=== PATIENT | male | born 1945 | race Two or more races ===

== ENCOUNTER 2020-05-26 13:04 | Inpatient (IN) | payer OTHER ==
[~2020-05-26] VITALS: Ht 170.2 cm; Wt 83.8 kg
[~2020-05-26 13:04] MED LIST: CIPR-173 PO; DOCU-94 PO; FERR-20 PO; HYDR-4833 PO; HYDR25TA4 PO; LISI-648 PO; OMEP20TA PO; SERT-274 PO; SIMV-8 PO; SULI200T4 PO; TAMS0.4C36 PO
[2020-05-26] MEDS ORDERED: SODIUM CHLORIDE 0.9% 1,000 ML IVB ONE (13:30)
[2020-05-26 13:36] LABS: Basophils # (auto) 0 10 ^3/uL (0-0.2); Basophils % (auto) 0.2 % (0.0-2.0); Eosinophils # (auto) 0 10 ^3/uL (0-0.8); Eosinophils % (auto) 0.1 % (0.0-7.0); Hematocrit 43.1 % (41.0-53.0); Hemoglobin 14.4 g/dL (13.5-17.5); Lymphocytes # (auto) 0.5 10 ^3/uL (0.4-5.4); Lymphocytes % (auto) 3.2 % (10.0-50.0); Mean Corpuscular Hemoglobin 30.5 pg (28.0-32.0); Mean Corpuscular Hgb Conc. 33.3 g/dL (32.0-36.0); Mean Corpuscular Volume 91.5 fL (80.0-100.0); Monocytes # (auto) 0.3 10 ^3/uL (0-1.3); Neutrophils # (auto) 14.3 10 ^3/uL (1.6-8.6); Neutrophils % (auto) 94.5 % (37.0-80.0); Platelet Count (auto) 267 10^3/uL (140-450); Red Blood Cells 4.71 10^6/uL (4.5-5.90); Red Cell Distribution Width 14.3 % (11.8-14.3); White Blood Cell 15.1 10^3/uL (4.4-10.8)
[2020-05-26] MEDS ORDERED: ACETAMINOPHEN 325 MG TAB PO ONE ×2 (13:37→13:45)
[2020-05-26] MEDS ORDERED: ACETAMINOPHEN 650 MG RECT SUPP PR ONE (13:45)
[2020-05-26] MEDS ORDERED: PANTOPRAZOLE 40 MG/10 ML VIAL INJ IV ONE (13:45)
[2020-05-26 13:59] LABS: INR 1.12 (0.9-1.15); Partial Thromboplastin Time 25.6 sec (23.0-31.2)
[2020-05-26 14:01] LABS: Albumin 3.1 g/dL (3.4-5.0); Anion Gap 10 (5-15); Blood Urea Nitrogen 20 mg/dL (7-18); Calcium 8.3 mg/dL (8.5-10.1); Carbon Dioxide 22 mmol/L (21-32); Chloride 104 mmol/L (98-107); Glucose 165 mg/dL (74-106); Sodium 136 mmol/L (136-145)
[2020-05-26 14:06] LABS: Alanine Aminotransferase 45 U/L (16-61); Alkaline Phosphatase 121 U/L (45-117); Aspartate Aminotransferase 53 U/L (15-37); BUN/Creatinine Ratio 16.9; Bilirubin, Total 0.9 mg/dL (0.2-1.0); GFR African American 78 mL/min; GFR Non-African American 64 mL/min; Total Protein 7.4 g/dL (6.4-8.2)
[2020-05-26 14:09] LABS: Potassium 2.9 mmol/L (3.5-5.1)
[2020-05-26 14:13] LABS: Lactic Acid w/Reflex 2.1 mmol/L (0.4-2.0)
[2020-05-26 14:15] LABS: Magnesium 1.7 mg/dL (1.6-2.6)
[2020-05-26] MEDS: POTASSIUM CHL 20MEQ/100ML 100 ML IV SCH ×2 (15:23→16:51)
[2020-05-26] MEDS ORDERED: OMEP-411 PO (17:44)
[2020-05-26] MEDS ORDERED: MORPHINE SULF INJ 2 MG/ML SYRINGE 1ML IV PRN (17:45)
[2020-05-26] MEDS ORDERED: SODIUM CHLORIDE 0.9% 2,450 ML IV ONE (17:45)
[2020-05-26] MEDS ORDERED: SODIUM CHLORIDE 0.9% 1,000 ML IV ONE (17:45)
[2020-05-26] MEDS ORDERED: NITROGLYCERIN 0.4 MG SL TAB SL PRN (17:45)
[2020-05-26] MEDS ORDERED: DOXYCYCLINE 100MG/250ML 250 ML IV ONE (18:00)
[2020-05-26] MEDS ORDERED: POTASSIUM CHL 20MEQ/100ML 100 ML IV SCH ×2 (18:15→19:45)
[2020-05-26] MEDS ORDERED: ACETAMINOPHEN 500 MG TAB PO PRN (19:45)
[2020-05-26] MEDS ORDERED: ONDANSETRON HCL 4 MG/2 ML VIAL IV PRN (19:45)
[2020-05-26 19:53] LABS: Urine Bacteria NONE SEEN /hpf (None Seen); Urine Blood 1+ /uL (Negative); Urine Specific Gravity 1.012 (1.001-1.035); Urine WBC 1 /hpf (0 - 3)
[2020-05-26 20:20] VITALS: BP 132/71
[2020-05-26] MEDS: CEFEPIME 2 GM in SODIUM CHL 0.9% 50 ML IV SCH (21:10)
--- NOTE | 2020-05-26 21:19 | NUR ---
Telemetry admit from [facility] admitted to Telemetry unit after SBAR received. Patient oriented to Darinel Torres, primary RN, unit, room, bed, and unit policies regarding patient care and visiting hours. Patient now on continuous telemetry monitoring, tele box #[id number] and telemetry reading on arrival to unit is SR 75. Patient placed on bedside oxygen, weighed by bedscale and encouraged to call if they need something. All questions and concerns addressed, patient verbalized understanding.
--- NOTE | 2020-05-26 21:55 | NUR ---
PATIENT HAS BEEN TRANSFERRED TO [facility]. CARE ENDORSED TO ASHLY ANDREWS.
--- NOTE | 2020-05-26 21:55 | NUR ---
PATIENT RECEIVED Received patient from [facility]. Patient is alert and oriented, no distress noted, on room air saturating at 93%.
[2020-05-26 22:00] VITALS: BP 105/70
[2020-05-26] MEDS ORDERED: PNEUMOCOCCAL VACC POLYS 25 MCG/0.5 ML VIAL IM ONE (23:30)
[2020-05-26] MEDS: metroNIDAZOLE 500MG/100ML 100 ML IV SCH (23:37)
[2020-05-26] MEDS: FAMOTIDINE (10MG/ML) 2ML VL IV SCH (23:38)
[2020-05-27] MEDS: CEFEPIME 2 GM in SODIUM CHL 0.9% 50 ML IV SCH ×2 (02:38→10:34)
[2020-05-27] MEDS ORDERED: PNEUMOCOCCAL VACC POLYS 25 MCG/0.5 ML VIAL IM ONE (03:00)
--- NOTE | 2020-05-27 03:30 | NUR ---
Patient is having chills. Covered with blankets and given hot packs to warm patient. Extremities are cold that it is hard to get patient's oxygen saturation. Placed patient on oxygen 5LNC. Still patient's oxygen is at 84%. Changed to Oxymizer 8L, but patient remains hypoxic, saturating at 78% to 86%. Paged RT and RT changed to Non-rebreather. Heart rate is going up to 130/min. Temp is 98.6
--- NOTE | 2020-05-27 04:00 | NUR ---
Patient's chills and movements reduced and temp check is 100.6. Patient is resting, chills is gone and patient was requesting water. At this time, patient is saturating 96% on 12L non-rebreather. Patient states he is feeling better.
[2020-05-27] MEDS: ACETAMINOPHEN 325 MG TAB PO PRN ×2 (04:45→12:16)
--- NOTE | 2020-05-27 04:45 | NUR ---
Given Tylenol for fever of 100.6. Will monitor
[2020-05-27 05:00] VITALS: BP 106/71
--- NOTE | 2020-05-27 05:28 | NUR ---
Report given to DARRYL Tena. Patient is stable with the following vitals: Temp 99.2, 111/74 BP, 100HR, 92% on room air and 20 respirations.
--- NOTE | 2020-05-27 05:45 | NUR ---
Patient transferred to [facility], no distress noted at time of transfer.
--- NOTE | 2020-05-27 05:45 | NUR ---
Patient's temp is now 99.2. Patient is stable, no distress noted and patient transferred to [facility].
[2020-05-27] MEDS: metroNIDAZOLE 500MG/100ML 100 ML IV SCH ×2 (06:00→13:49)
[2020-05-27 06:05] LABS: Basophils # (auto) 0 10 ^3/uL (0-0.2); Basophils % (auto) 0.2 % (0.0-2.0); Eosinophils # (auto) 0 10 ^3/uL (0-0.8); Eosinophils % (auto) 0.1 % (0.0-7.0); Hematocrit 39.6 % (41.0-53.0); Hemoglobin 13.3 g/dL (13.5-17.5); Lymphocytes # (auto) 0.8 10 ^3/uL (0.4-5.4); Lymphocytes % (auto) 5.9 % (10.0-50.0); Mean Corpuscular Hgb Conc. 33.5 g/dL (32.0-36.0); Mean Corpuscular Volume 92.6 fL (80.0-100.0); Monocytes # (auto) 0.4 10 ^3/uL (0-1.3); Monocytes % (auto) 2.9 % (0.0-12.0); Neutrophils % (auto) 90.9 % (37.0-80.0); Platelet Count (auto) 238 10^3/uL (140-450); Red Blood Cells 4.28 10^6/uL (4.5-5.90); Red Cell Distribution Width 14.7 % (11.8-14.3); White Blood Cell 14.2 10^3/uL (4.4-10.8)
[2020-05-27 06:32] LABS: Potassium 3.4 mmol/L (3.5-5.1)
[2020-05-27 06:39] LABS: Albumin 2.8 g/dL (3.4-5.0); Bilirubin, Total 0.7 mg/dL (0.2-1.0); Calcium 7.8 mg/dL (8.5-10.1); Total Protein 6.7 g/dL (6.4-8.2)
[2020-05-27] MEDS ORDERED: POTASSIUM CHL 20 Meq TABLET PO ONE (07:15)
[2020-05-27] MEDS ORDERED: IOHEXOL 300 MG/ML 100ML BOTTLE IJ ONE (07:20)
--- NOTE | 2020-05-27 07:25 | NUR ---
OPENING SHIFT NOTE ASSUMED CARE OF PATIENT FROM TREASURY AGENT RN DORIS. PATIENT IS AWAKE, ALERT, AND ORIENTED X4. PATIENT HAS NO S/S OF DISTRESS/SOB OR PAIN. INSTRUCTED PATIENT ON POC, PATIENT VERBALIZED UNDERSTANDING. BED IS IN LOWEST POSITION WITH SIDE RAILS RAISED X2, BED WHEELS LOCKED, AND CALL LIGHT IS WITHIN REACH. WILL CONTINUE TO MONITOR.
--- NOTE | 2020-05-27 07:48 | NUR ---
C DIFF SAMPLE SENT TO LAB.
[2020-05-27 08:00] VITALS: BP 120/62
--- NOTE | 2020-05-27 08:49 | NUR ---
MD JIMENEZ AT BEDSIDE UPDATED MD ON PATIENT'S STATUS INCLUDING CT RESULTS AND C.DIFF SENT TO LAB. PER MD PATIENT CAN BE DISCHARGED ONCE C.DIFF RESULTS COME BACK. WILL FOLLOW THROUGH WITH ORDERS.
[2020-05-27] MEDS ORDERED: OMEP-411 PO (08:54)
[2020-05-27] MEDS ORDERED: LEVO750T8 PO (08:54)
[2020-05-27] MEDS ORDERED: ONDA-144 PO (08:54)
[2020-05-27] MEDS ORDERED: METR500T PO (08:54)
[2020-05-27 09:00] VITALS: BP 120/62
[2020-05-27] MEDS: FAMOTIDINE (10MG/ML) 2ML VL IV SCH (09:59)
[2020-05-27] MEDS ORDERED: ENOXAPARIN SOD 40 MG/0.4 ML SYRINGE SC SCH (10:00)
[2020-05-27 12:45] VITALS: BP 110/65
--- NOTE | 2020-05-27 15:54 | NUR ---
RECEIVED CALL FROM DR. JIMENEZ. PER MD WE DON'T NEED TO WAIT FOR C.DIFF RESULTS. PATIENT CAN BE DISCHARGED NOW. WILL FOLLOW THROUGH WITH ORDERS.
[2020-05-27 15:56] VITALS: BP 120/62
--- NOTE | 2020-05-27 16:36 | NUR ---
Discharge instructions given as ordered. Encourage to follow up with PMD as instructed. All questions and concerns addressed. Patient verbalized understanding. Medication reconciliation form completed and copy given to patient. needed vaccines given. IV removed with catheter intact, pressure dressing applied. Telemetry unit returned to ICU. Patient taken to vehicle via wheelchair with all personal belongings, accompanied by staff and family member. No distress noted at time of departure.
--- NOTE | 2020-05-28 09:12 | NUR ---
Assessment Patient is a 74-year old male who is alert and oriented. Prior to admission patient lived with family and functioned independently. Per patient he can care for his own ADL's. Patient does not have any DME now. Per patient he will return home to his prior living arrangements post discharge and family will transport him home. Advised patient there is a social service consult for home health safety evaluation, CBC and CMP. Informed patient [facility] will assist with home health and appointments. Informed patient he has a right to participate in all discharge planning. Patient verbalized understanding and agreed to discharge plan. Faxed clinical information to [employer]. Per GARRISON perez [employer] patient has been accepted to [facility] and will be seen within 24-48hrs upon d/c day. Addendum: 05/28/20 at 0914 by JU MILAN Amended: Links added.
== END 2020-05-27 16:34 | disposition home health service (06) | DRG 872 ==
LOC: EDBD 13:04 → ER 13:04 → TELE 13:05 → TELE-WESTW 20:20 → TELE-EAST 22:51 → TELE-WESTW 05-27 05:54
PROVIDERS: ADMIT Hospitalist; ATTEND Hospitalist
DX: A41.9 Sepsis, unspecified organism (principal); K92.1 Melena; I10 Essential (primary) hypertension; E87.6 Hypokalemia; K52.9 Noninfective gastroenteritis and colitis, unspecified; Z85.46 Personal history of malignant neoplasm of prostate; Z90.79 Acquired absence of other genital organ(s); Z20.828 Contact with and (suspected) exposure to other viral communicable diseases; Z79.899 Other long term (current) drug therapy
CPT/HCPCS: 36415; 71045; 74177; 80053; 81001; 82150; 83605; 83690; 83735; 84484; 85025; 85379; 85610; 85730; 87040; 87086; 87426; 87493; 93005; 99291; C9113; G0378; J3480; J3490